=== PATIENT | female | born 1980 | race Caucasian/White ===

== ENCOUNTER 2024-02-23 14:20 | Emergency (ER) | payer OTHER ==
[2024-02-23 14:29] VITALS: RESP 18; BMI 26.6
[2024-02-23] MEDS: DICYCLOMINE HCL 20 MG/2 ML AMPUL IM ONE (15:49)
[2024-02-23] MEDS ORDERED: MAGNESIUM CITRATE 300 ML BOTTLE ONE (16:33)
[2024-02-23] MEDS: SODIUM PHOSPHATE/NA BIPHOS 133 ML ENEMA PR ONE (16:40)
[2024-02-23] MEDS: MAGNESIUM CITRATE 300 ML BOTTLE PO ONE (17:05)
[2024-02-23 17:48] VITALS: BP 150/80; PULSE 79; TEMP 98
[2024-02-23 21:13] LABS: EPI CELLS >36 /uL (0-25.1); HYALINE CASTS 9 /uL (0-3.1); URINE APPEARANCE TURBID; URINE BACTERIA 25 /uL (0-1359); URINE BILIRUBIN NEGATIVE (NEGATIVE); URINE COLOR DK YELLOW; URINE GLUCOSE (UA) 1+ (NEGATIVE); URINE KETONE NEGATIVE (NEGATIVE); URINE LEUK ESTERASE NEGATIVE (NEGATIVE); URINE NITRITE NEGATIVE (NEGATIVE); URINE PROTEIN 2+ (NEGATIVE); URINE RBC 13 /uL (0-23.9); URINE WBC 20 /uL (0-25.8)
== END 2024-02-23 23:28 | disposition home or self-care (01) ==
LOC: JER 14:20
PROC: 3E023GC Introduction of Other Therapeutic Substance into Muscle, Percutaneous Approach (ICD-10-PCS; principal; 2024-02-23)
DX: K59.00 Constipation, unspecified (principal); R10.84 Generalized abdominal pain; R14.0 Abdominal distension (gaseous)
CPT/HCPCS: 74018-TC-FY; 74176-TC; 81003; 84703; 87086; 99285-25

== ENCOUNTER 2024-02-25 22:37 | Emergency (ER) | payer OTHER ==
[2024-02-25 22:52] VITALS: BP 148/90; PULSE 95; RESP 16; TEMP 97.8; BMI 26.6
[2024-02-26] MEDS: ONDANSETRON 4 MG/2 ML VIAL IVPUSH ONE (00:02)
[2024-02-26] MEDS: SODIUM CHLORIDE 0.9% 500 ML INFUS.BAG IV ONE (00:02)
[2024-02-26] MEDS: ACETAMINOPHEN 1000 MG/100 ML BAG IVPB ONE (00:02)
[2024-02-26] MEDS ORDERED: ONDANSETRON 4 MG/2 ML VIAL ONE (00:04)
[2024-02-26] MEDS ORDERED: ACETAMINOPHEN INJECTION 100 ML IVPB ONE (00:04)
[2024-02-26 00:39] LABS: HEMATOCRIT 41.4 % (32.4-45.2); HEMOGLOBIN 13.1 GM/dL (10.7-15.3); MCH 22.9 pg (25.7-33.7); MCHC 31.5 g/dl (32.0-36.0); MEAN CELL VOLUME 72.6 fl (80-96); MEAN PLT VOLUME 8.3 fl (7.5-11.1); PLATELET COUNT 202 10^3/uL (134-434); RDW 33.2 % (11.6-15.6); WHITE BLOOD COUNT 20.3 K/mm3 (4.0-10.0)
[2024-02-26 00:54] LABS: POTASSIUM 3.9 mmol/L (3.5-5.1)
[2024-02-26 00:56] LABS: BLOOD UREA NITROGEN 7.5 mg/dL (7-18); CALCIUM 9.7 mg/dL (8.5-10.1)
[2024-02-26 00:58] LABS: ALBUMIN 3.7 g/dl (3.4-5.0)
[2024-02-26 01:00] LABS: CREATININE 0.6 mg/dL (0.55-1.3)
[2024-02-26 01:02] LABS: TOT PROT 8.2 g/dl (6.4-8.2)
[2024-02-26 01:12] LABS: BILIRUBIN,TOTAL 0.8 mg/dL (0.2-1)
[2024-02-26] MEDS: morphine CARPU-JECT 2 MG/1 ML DISP.SYRIN IVPUSH ONE (01:50)
[2024-02-26 03:56] LABS: EPI CELLS 24 /uL (0-25.1); HYALINE CASTS 1 /uL (0-3.1); URINE APPEARANCE CLEAR; URINE BACTERIA 151 /uL (0-1359); URINE BILIRUBIN NEGATIVE (NEGATIVE); URINE COLOR YELLOW; URINE GLUCOSE (UA) NEGATIVE (NEGATIVE); URINE KETONE 3+ (NEGATIVE); URINE LEUK ESTERASE 1+ (NEGATIVE); URINE NITRITE NEGATIVE (NEGATIVE); URINE PROTEIN TRACE (NEGATIVE); URINE RBC 146 /uL (0-23.9); URINE UROBILINOGEN 0.2 mg/dL (0.2-1.0); URINE WBC 100 /uL (0-25.8)
[2024-02-26] MEDS ORDERED: CEFTRIAXONE 1 GM/50 ML BAG ONE (04:34)
== END 2024-02-26 05:31 | disposition home or self-care (01) ==
LOC: JER 22:37
PROC: 3E033NZ Introduction of Analgesics, Hypnotics, Sedatives into Peripheral Vein, Percutaneous Approach (ICD-10-PCS; principal; 2024-02-25)
PROC: 3E033GC Introduction of Other Therapeutic Substance into Peripheral Vein, Percutaneous Approach (ICD-10-PCS; 2024-02-25)
PROC: 3E03329 Introduction of Other Anti-infective into Peripheral Vein, Percutaneous Approach (ICD-10-PCS; 2024-02-26)
DX: R10.30 Lower abdominal pain, unspecified (principal); D72.829 Elevated white blood cell count, unspecified; R11.0 Nausea
CPT/HCPCS: 36415; 74177-TC; 80053; 81003; 83605; 84703; 85025; 87086; 99285-25; J0131; Q9967

== ENCOUNTER 2024-06-10 10:16 | Day surgery (SDC) | payer OTHER ==
[2024-06-10] MEDS: FERRIC CARBOXYMALTOSE 750 MG in SODIUM CHLORIDE 250 ML IVPB ONE (11:53)
[2024-06-10 17:02] VITALS: RESP 18; TEMP 98.6
[2024-06-10 17:03] VITALS: BP 169/80; PULSE 66
== END 2024-06-10 13:00 | disposition home or self-care (01) ==
LOC: JONCCHEMO 10:16 → J7W 10:19 → JONCCHEMO 13:00
PROVIDERS: ATTEND Student in an Organized Health Care Education/Training Program
PROC: 3E033GC Introduction of Other Therapeutic Substance into Peripheral Vein, Percutaneous Approach (ICD-10-PCS; principal; 2024-06-10)
DX: D50.9 Iron deficiency anemia, unspecified (principal)
CPT/HCPCS: 96365; J1439

== ENCOUNTER 2024-06-17 09:22 | Day surgery (SDC) | payer OTHER ==
[2024-06-17] MEDS: FERRIC CARBOXYMALTOSE 750 MG in SODIUM CHLORIDE 250 ML IVPB ONE (10:10)
[2024-06-17 15:55] VITALS: BP 142/81; PULSE 70; RESP 20; TEMP 98.4
== END 2024-06-17 11:15 | disposition home or self-care (01) ==
LOC: JONCCHEMO 09:22 → J7W 09:24 → JONCCHEMO 11:15
PROVIDERS: ATTEND Student in an Organized Health Care Education/Training Program
PROC: 3E033GC Introduction of Other Therapeutic Substance into Peripheral Vein, Percutaneous Approach (ICD-10-PCS; principal; 2024-06-17)
DX: D50.9 Iron deficiency anemia, unspecified (principal)
CPT/HCPCS: 96365; J1439